=== PATIENT | male | born 1965 | race Caucasian/White ===

== ENCOUNTER 2022-02-06 09:16 | Emergency (ER) | payer OTHER ==
[~2022-02-06] VITALS: Ht 180.3 cm; Wt 101.7 kg
[2022-02-06] MEDS ORDERED: CEFTRIAXONE 1 GM VIAL IM ONE (10:00)
[2022-02-06] MEDS ORDERED: LIDOCAINE HCL 1% LOCAL INJ 20 ML VIAL ONE (10:01)
[2022-02-06] MEDS ORDERED: IBUPROFEN200 MG PO (10:13)
[2022-02-06] MEDS ORDERED: ACETAMINOPHEN500 MG PO (10:13)
[2022-02-06] MEDS ORDERED: CEFDINIR300 MG PO (10:13)
[2022-02-06] MEDS ORDERED: FLONASE ALLERG9.9 ML INH (10:13)
[2022-02-06 14:00] LABS: INFLUENZAE A&B ANTIGEN (RAPID) NEGATIVE (NEGATIVE); RESPIRATORY SYNC. VIRUS NEGATIVE (NEGATIVE)
== END 2022-02-06 10:22 | disposition home or self-care (01) ==
LOC: FSED 09:21
DX: R05.9 Cough, unspecified (principal); U07.1 COVID-19; H66.92 Otitis media, unspecified, left ear; J06.9 Acute upper respiratory infection, unspecified; I10 Essential (primary) hypertension; E11.9 Type 2 diabetes mellitus without complications; E03.9 Hypothyroidism, unspecified; K21.9 Gastro-esophageal reflux disease without esophagitis; Z87.19 Personal history of other diseases of the digestive system
CPT/HCPCS: 83518; 87400; 87420; 96372; 99283; J0696; J2001; U0002